=== PATIENT | male | born 1955 | race Caucasian/White ===

== ENCOUNTER → 2017-02-09 | Outpatient (CLI) | payer MEDICAID | LOC: FIMAGING 15:02 | PROVIDERS: ATTEND Internal Medicine | DX: R05 Cough (principal); F17.200 Nicotine dependence, unspecified, uncomplicated ==

== ENCOUNTER 2017-02-24 09:15 | Day surgery (SDC) | payer MEDICAID ==
[2017-02-24] MEDS ORDERED: LIDOCAINE 1% 2 ML INJ ONE (09:53)
[2017-02-24] MEDS ORDERED: LIDOCAINE 1% 5 ML SDV ID PRN (10:21)
[2017-02-24] MEDS ORDERED: LR 1,000 ML IV ONE (10:21)
[2017-02-24] MEDS ORDERED: fentaNYL 100 MCG/2 ML INJ ONE (10:30)
[2017-02-24] MEDS ORDERED: MIDAZOLAM 2 MG/2 ML VIAL ONE ×2 (10:30→10:49)
[2017-02-24] MEDS ORDERED: PROPOFOL 200 MG/20 ML VIAL ONE ×2 (10:31→11:09)
[2017-02-24] MEDS ORDERED: LIDOCAINE 2% 5 ML SDV ONE (10:33)
--- NOTE | 2017-02-24 12:08 | GPN ---
[f rep st] PROCEDURE NOTE DATE OF PROCEDURE: 02/24/2017 PROCEDURE: Colonoscopy with snare polypectomy. INDICATION: The patient is a 61-year-old male who presents for screening colonoscopy. CONSENT: Risks, benefits, and alternatives of the procedure were discussed in great detail with the patient. Risks of infection, bleeding, perforation, and sedation were discussed. All questions answered and informed consent obtained. MEDICATIONS: Propofol. Please see anesthesiology record for details. ESTIMATED BLOOD LOSS: Insignificant. COLONOSCOPIC EVALUATION: A rectal exam was done and no palpable masses felt. The Olympus colonocope was introduced into the rectum and advanced to the cecum where the ileocecal valve and appendiceal orifice were seen. There was some adherent stool in the right colon, which was aggressively flushed and suctioned with adequate visualization. In the ascending colon and descending colon, 2 sessile polyps were seen (from 4- 7 mm in size) and removed by snare polypectomy. IMPRESSION: Colonic polyps x2. RECOMMENDATION: 1. Follow up on biopsies. 2. Repeat colonoscopy in 5-10 years depending on pathology. If adenomatous, recommend repeat in 5 years. 3. Continue previous medications. 4. Advance diet. /[id number]/MODL MTDD
== END 2017-02-24 12:43 | disposition home or self-care (01) ==
LOC: FSGY 09:15
PROVIDERS: ATTEND Internal Medicine Gastroenterology
PROC: 0DBM8ZX Excision of Descending Colon, Via Natural or Artificial Opening Endoscopic, Diagnostic (ICD-10-PCS; principal; 2017-02-24 10:45)
PROC: 0DBK8ZX Excision of Ascending Colon, Via Natural or Artificial Opening Endoscopic, Diagnostic (ICD-10-PCS; principal; 2017-02-24 10:45)
DX: Z12.11 Encounter for screening for malignant neoplasm of colon (principal); D12.2 Benign neoplasm of ascending colon; D12.4 Benign neoplasm of descending colon; R05 Cough; F17.200 Nicotine dependence, unspecified, uncomplicated
CPT/HCPCS: J2250; J2704; J3010

== ENCOUNTER → 2017-05-26 | Outpatient (CLI) | payer MEDICAID | LOC: FIMAGING 12:09 | PROVIDERS: ATTEND Internal Medicine | DX: J45.909 Unspecified asthma, uncomplicated (principal); F17.200 Nicotine dependence, unspecified, uncomplicated; I25.10 Atherosclerotic heart disease of native coronary artery without angina pectoris; S22.32XD Fracture of one rib, left side, subsequent encounter for fracture with routine healing ==

== ENCOUNTER → 2019-04-04 | Outpatient (CLI) | payer MEDICAID | LOC: FIMAGING 11:57 ==